=== PATIENT | male | born 1990 | race Caucasian/White ===

== ENCOUNTER 2018-11-05 09:53 | Emergency (ER) | payer BC, OTHER ==
[~2018-11-05] VITALS: Ht 177.8 cm; Wt 68.5 kg
[~2018-11-05 09:53] MED LIST: CEFA500C82 PO; HYDR-757 PO; HYDR1TAB PO
[2018-11-05] MEDS ORDERED: LACTATED RINGERS 1,000 ML IV ONE (10:13)
[2018-11-05] MEDS ORDERED: PANTOPRAZOLE 40 MG (PROTONIX) VIAL IV ONE (10:15)
[2018-11-05] MEDS ORDERED: ONDANSETRON 4 MG/2 ML (SDV) Z0FRAN IVP ONE (10:15)
[2018-11-05 10:20] LABS: BILIRUBIN,URINE NEGATIVE (NEGATIVE); CLARITY,URINE CLEAR; COLOR,URINE YELLOW; GLUCOSE, URINE (UA) NEGATIVE (NEGATIVE); KETONES,URINE NEGATIVE (NEGATIVE); LEUKOCYTE ESTERASE ,URINE NEGATIVE (NEGATIVE); NITRITE,URINE NEGATIVE (NEGATIVE); PH,URINE 5 (5-9); PROTEIN,URINE NEGATIVE (NEGATIVE); UROBILINOGEN,URINE NORMAL (NORMAL)
[2018-11-05 10:22] LABS: BASOPHILS % (AUTO) 0 % (0-10); EOSINOPHILS # (AUTO) 0.6 10^3/uL (0.0-0.3); EOSINOPHILS % (AUTO) 6 % (0-10); HEMATOCRIT 43 % (40-54); HEMOGLOBIN 14.4 G/DL (13.3-17.7); LYMPHOCYTES # (AUTO) 1.1 X 10^3 (1.0-4.0); LYMPHOCYTES % (AUTO) 10 % (12-44); MEAN CORPUSCULAR HEMOGLOBIN 29 PG (25-34); MEAN CORPUSCULAR HGB CONC 34 G/DL (32-36); MEAN CORPUSCULAR VOLUME 87 FL (80-99); MEAN PLATELET VOLUME 10.2 FL (7.4-10.4); MONOCYTES # (AUTO) 0.8 X 10^3 (0.0-1.0); MONOCYTES % (AUTO) 8 % (0-12); NEUTROPHILS # (AUTO) 8.4 X 10^3 (1.8-7.8); NEUTROPHILS % (AUTO) 77 % (42-75); PLATELET COUNT 261 10^3/uL (130-400); RED CELL DISTRIBUTION WIDTH 13.3 % (10.0-14.5)
--- OUTSIDE RECORDS SUMMARY | 2018-11-05 10:26 | XMS REPORT | Continuity of Care Document ---
Author Organization Unknown Address Unknown Allergies There is no data. Medications There is no data. Problems There is no data. Procedures There is no data. Results There is no data. Encounters ACCT No. Visit Date/Time Discharge Status Pt. Type Provider Facility Loc./Unit Complaint [id number] 04/25/2013 12:02:00 04/25/2013 13:54:00 [facility] Emergency
[2018-11-05] MEDS ORDERED: IOHEXOL 350 MG/ML 100 ML (OMNIPAQUE 350) VIAL IV ONE (10:30)
[2018-11-05] MEDS ORDERED: HOLD METFORMIN - RECEIVED CONTRAST 20 ML VIAL IV SCH (10:30)
[2018-11-05] MEDS ORDERED: NS 100 ML (IVPB) BAG IV ONE (10:30)
[2018-11-05 10:34] LABS: BACTERIA,URINE TRACE /HPF; SQUAMOUS EPITHELIAL CELL,UR RARE /HPF
[2018-11-05 10:48] LABS: ALANINE AMINOTRANSFERASE 23 U/L (0-55); ALBUMIN 4.5 GM/DL (3.2-4.5); ALKALINE PHOSPHATASE 90 U/L (40-136); AMYLASE 36 U/L (25-125); BILIRUBIN,TOTAL 0.6 MG/DL (0.1-1.0); BUN/CREATININE RATIO 15; CALCIUM 9.2 MG/DL (8.5-10.1); CARBON DIOXIDE 27 MMOL/L (21-32); CHLORIDE 108 MMOL/L (98-107); CREATININE SERUM 0.87 MG/DL (0.60-1.30); GFR ESTIMATED > 60; GLUCOSE 96 MG/DL (70-105); LIPASE 20 U/L (8-78); MAGNESIUM 2.1 MG/DL (1.8-2.4); POTASSIUM 3.7 MMOL/L (3.6-5.0); SODIUM 141 MMOL/L (135-145); TOTAL PROTEIN 7.4 GM/DL (6.4-8.2)
--- NOTE | 2018-11-05 11:18 | Diagnostic Imaging Report ---
PATIENT HISTORY: Abdominal pain in the left abdomen. Nausea and diarrhea. TECHNIQUE: Frontal view of the chest. Supine and upright frontal views of the abdomen. COMPARISON: CT from the same day. FINDINGS: Lung volumes are normal. No focal consolidation is seen. The cardiomediastinal silhouette is normal in size and contour. There is no pleural effusion or pneumothorax. The bowel loops are nondistended with no obstruction seen. Gas is seen in the colon and small bowel. No large collection of free air is seen. There is contrast excretion from the kidneys and in the bladder. No acute osseous abnormality seen. IMPRESSION: 1. No bowel obstruction or large collection of free air. 2. No acute pulmonary abnormality. Dictated by: Dictated on workstation # [id number]
--- NOTE | 2018-11-05 11:31 | Diagnostic Imaging Report ---
PROCEDURE: CT abdomen and pelvis with contrast. TECHNIQUE: Multiple contiguous axial images were obtained through the abdomen and pelvis after administration of intravenous contrast. Auto Exposure Controls were utilized during the CT exam to meet ALARA standards for radiation dose reduction. INDICATION: Left sided abdominal pain, diarrhea. COMPARISON: No prior studies are available for comparison. FINDINGS: The lung bases are clear. The liver demonstrates generalized low density, consistent with hepatic steatosis. No discrete liver mass is seen. The gallbladder is unremarkable. No biliary ductal dilatation is identified. The pancreas has a normal appearance. No peripancreatic fluid or stranding is seen. The spleen is normal in size. No adrenal mass is detected. The kidneys are unremarkable. The aorta is non-aneurysmal. The visualized bowel loops appear to be of normal caliber. There is a long segment of moderate wall thickening involving small bowel loops in the lower abdomen and pelvis. The colon is unremarkable. There is no free fluid or fluid collection. No free air is identified. The bladder is unremarkable. IMPRESSION: Unremarkable CT of the abdomen and pelvis apart from a segment of wall thickening involving small bowel loops in the lower abdomen and pelvis, consistent with a nonspecific enteritis. Inflammatory bowel disease cannot be entirely excluded. There is no bowel obstruction, abscess formation, or free air. Dictated by: Dictated on workstation # [id number]
--- NOTE | 2018-11-05 11:39 | ED GI ---
General Chief Complaint: Abdominal/GI Problems Stated Complaint: DIARRHEA/ABD PAIN Nursing Triage Note: PATIENT HERE FOR COMPLAINTS OF ABD PAIN THAT STARTED AT 0300. HE DESCRIBES PAIN A SQUEEZING ON THE LEFT SIDE OF HIS ABD, THEN A DULL ACHE WHEN IT RELEASES. ADMITS TO NAUSEA AND DIARRHEA, DENIES VOMITING. PATIENT HERE WITH HIS BOSS HE WAS AT WORK WHEN HE DECIDED TO COME TO ER. Sepsis Screen: No Definite Risk Allergies and Home Medications Allergies Coded Allergies: Penicillins (Verified Allergy, Unknown, 11/05/18) Home Medications Hydrocodone Bit/Acetaminophen 1 Each Tablet, 1 EA PO Q6H PRN for MILD PAIN Prescribed by: CHLOE THOMPSON on 04/25/13 1344 Hyoscyamine Sulfate 0.125 Mg Tab.subl, 1-2 TAB SL Q4H Prescribed by: MIGUEL ROLAND on 11/05/18 1143 Ondansetron 4 Mg Tab.rapdis, 4 MG PO Q4H Prescribed by: MIGUEL ROLAND on 11/05/18 1143 Pantoprazole Sodium 40 Mg Tablet.dr, 40 MG PO DAILY Prescribed by: MIGUEL ROLAND on 11/05/18 1143 Past Cycaiwr-Enloeu-Bjamnn Hx Patient Social History Alcohol Use: Occasionally Uses Recreational Drug Use: No Smoking Status: Never a Smoker 2nd Hand Smoke Exposure: Yes Recent Foreign Travel: No Contact w/Someone Who Travel: No Recent Infectious Disease Expo: No Immunizations Up To Date Date of Influenza Vaccine: Jan 29, 2013 Past Medical History Surgeries: Yes (AMPUTATION LEFT FIFTH TOE (TRAUMATIC)) Respiratory: No Cardiac: No Neurological: Yes Reproductive Disorders: No Gastrointestinal: No Musculoskeletal: No Endocrine: No Cancer: No Psychosocial: No Integumentary: No Blood Disorders: No Physical Exam Vital Signs Vital Signs - First Documented 11/05/18 09:58 Temp 98.0 Pulse 85 Resp 20 B/P (MAP) 140/92 (108) Pulse Ox 97 Capillary Refill : Less Than 3 Seconds Height/Weight/BMI Height: 5'10.00" Weight: 151lbs. 0oz. 68.273982ox; BMI Method:Actual Progress/Results/Core Measures Results/Orders Lab Results Laboratory Tests Test 11/05/18 10:15 Range/Units White Blood Count 11.0 4.3-11.0 10^3/uL Red Blood Count 4.94 4.35-5.85 10^6/uL Hemoglobin 14.4 13.3-17.7 G/DL Hematocrit 43 40-54 % Mean Corpuscular Volume 87 80-99 FL Mean Corpuscular Hemoglobin 29 25-34 PG Mean Corpuscular Hemoglobin Concent 34 32-36 G/DL Red Cell Distribution Width 13.3 10.0-14.5 % Platelet Count 261 130-400 10^3/uL Mean Platelet Volume 10.2 7.4-10.4 FL Neutrophils (%) (Auto) 77 H 42-75 % Lymphocytes (%) (Auto) 10 L 12-44 % Monocytes (%) (Auto) 8 0-12 % Eosinophils (%) (Auto) 6 0-10 % Basophils (%) (Auto) 0 0-10 % Neutrophils # (Auto) 8.4 H 1.8-7.8 X 10^3 Lymphocytes # (Auto) 1.1 1.0-4.0 X 10^3 Monocytes # (Auto) 0.8 0.0-1.0 X 10^3 Eosinophils # (Auto) 0.6 H 0.0-0.3 10^3/uL Basophils # (Auto) 0.0 0.0-0.1 10^3/uL Urine Color YELLOW Urine Clarity CLEAR Urine pH 5 5-9 Urine Specific [place] 1.015 L 1.016-1.022 Urine Protein NEGATIVE NEGATIVE Urine Glucose (UA) NEGATIVE NEGATIVE Urine Ketones NEGATIVE NEGATIVE Urine Nitrite NEGATIVE NEGATIVE Urine Bilirubin NEGATIVE NEGATIVE Urine Urobilinogen NORMAL NORMAL MG/DL Urine Leukocyte Esterase NEGATIVE NEGATIVE Urine RBC (Auto) NEGATIVE NEGATIVE Urine RBC NONE /HPF Urine WBC NONE /HPF Urine Squamous Epithelial Cells RARE /HPF Urine Crystals NONE /LPF Urine Bacteria TRACE /HPF Urine Casts NONE /LPF Urine Mucus SMALL H /LPF Urine Culture Indicated NO Sodium Level 141 135-145 MMOL/L Potassium Level 3.7 3.6-5.0 MMOL/L Chloride Level 108 H 98-107 MMOL/L Carbon Dioxide Level 27 21-32 MMOL/L Anion Gap 6 5-14 MMOL/L Blood Urea Nitrogen 13 7-18 MG/DL Creatinine 0.87 0.60-1.30 MG/DL Estimat Glomerular Filtration Rate > 60 BUN/Creatinine Ratio 15 Glucose Level 96 70-105 MG/DL Calcium Level 9.2 8.5-10.1 MG/DL Corrected Calcium 8.8 8.5-10.1 MG/DL Magnesium Level 2.1 1.8-2.4 MG/DL Total Bilirubin 0.6 0.1-1.0 MG/DL Aspartate Amino Transf (AST/SGOT) 29 5-34 U/L Alanine Aminotransferase (ALT/SGPT) 23 0-55 U/L Alkaline Phosphatase 90 40-136 U/L Total Protein 7.4 6.4-8.2 GM/DL Albumin 4.5 3.2-4.5 GM/DL Amylase Level 36 25-125 U/L Lipase 20 8-78 U/L My Orders Orders - MIGUEL ROLAND DO Ed Iv/Invasive Line Start (11/05/18 10:07) Amylase (11/05/18 10:07) Cbc With Automated Diff (11/05/18 10:07) Comprehensive Metabolic Panel (11/05/18 10:07) Lipase (11/05/18 10:07) Magnesium (11/05/18 10:07) Ua Culture If Indicated (11/05/18 10:07) Ed Iv/Invasive Line Start (11/05/18 10:07) Ct Abdomen/Pelvis W (11/05/18 10:13) Acute Abd Series (11/05/18 10:13) Ondansetron Injection (Zofran Injectio (11/05/18 10:15) Ed Iv/Invasive Line Start (11/05/18 10:13) Lactated Ringers (Lr 1000 Ml Iv Solution (11/05/18 10:13) Pantoprazole Injection (Protonix Injecti (11/05/18 10:15) Iohexol Injection (Omnipaque 350 Mg/Ml 1 (11/05/18 10:30) Received Contrast (Hold Metformin- Contr (11/05/18 10:30) Ns (Ivpb) (Sodium Chloride 0.9% Ivpb Bag (11/05/18 10:30) Hyoscyamine Sl Tablet (Levsin Sl Tablet) (11/05/18 11:45) Ketorolac Injection (Toradol Injection) (11/05/18 11:45) Medications Given in ED Current Medications Medications Dose Ordered Sig/Cherie Route Start Time Stop Time Status Last Admin Dose Admin Iohexol 100 ml ONCE ONCE IV 11/05/18 10:30 11/05/18 10:31 DC 11/05/18 11:02 100 ML Lactated Ringer's 1,000 ml @ 0 mls/hr Q0M ONCE IV 11/05/18 10:13 11/05/18 10:15 DC 11/05/18 10:27 0 MLS/HR Ondansetron HCl 4 mg ONCE ONCE IVP 11/05/18 10:15 11/05/18 10:16 DC 11/05/18 10:27 4 MG Pantoprazole 40 mg ONCE ONCE IV 11/05/18 10:15 11/05/18 10:16 DC 11/05/18 10:27 40 MG Sodium Chloride 100 ml ONCE ONCE IV 11/05/18 10:30 11/05/18 10:31 DC 11/05/18 11:02 100 ML Vital Signs/I&O 11/05/18 09:58 Temp 98.0 Pulse 85 Resp 20 B/P (MAP) 140/92 (108) Pulse Ox 97 Blood Pressure Mean: 108 Departure Impression Primary Impression: Gastroenteritis Disposition: 01 HOME, SELF-CARE Condition: Improved Departure-Patient Inst. Referrals: NO,LOCAL PHYSICIAN (PCP/Family) Primary Care Physician Patient Instructions: [id number] Add. Discharge Instructions: CLEAR LIQUIDS--WATER, BROTH, JELLO, GATORADE BRATS DIET--BANANAS, RICE, APPLESAUCE, TOAST, SALTINES FOLLOW UP WITH YOUR DR IN 2-3 DAYS IF NO BETTER, RETURN TO ER IF WORSE All discharge instructions reviewed with patient and/or family. Voiced understanding. Scripts Pantoprazole Sodium (Protonix) 40 Mg Tablet.dr 40 MG PO DAILY, #15 TAB Prov: MIGUEL ROLAND DO 11/05/18 Hyoscyamine Sulfate (Levsin-Sl) 0.125 Mg Tab.subl 1-2 TAB SL Q4H for Abdominal Pain, #10 TAB Prov: MIGUEL ROLAND DO 11/05/18 Ondansetron (Ondansetron Odt) 4 Mg Tab.rapdis 4 MG PO Q4H for Nausea/Vomiting, #10 TAB Prov: MIGUEL ROLAND DO 11/05/18 Work/School Note: Work Release Form Date Seen in the Emergency Department: Nov 05, 2018 Return to Work: Nov 06, 2018 Restrictions: No Restrictions MIGUEL ROLAND DO Nov 05, 2018 11:39
[2018-11-05] MEDS ORDERED: PANT40TA2 PO (11:43)
[2018-11-05] MEDS ORDERED: HYOS0.1283 SL (11:43)
[2018-11-05] MEDS ORDERED: ONDA4TAB11 PO (11:43)
[2018-11-05] MEDS ORDERED: KETOROLAC 30 MG/ML VIAL IVP ONE (11:45)
[2018-11-05] MEDS ORDERED: HYOSCYAMINE 0.125 MG (LEVSIN) TAB PO ONE (11:45)
[2018-11-05 12:35] VITALS: BP 140/92
== END 2018-11-05 12:35 | disposition home or self-care (01) ==
LOC: EDUNIT# 09:53 → ER 09:55
DX: K52.9 Noninfective gastroenteritis and colitis, unspecified (principal); Z88.0 Allergy status to penicillin; Z89.422 Acquired absence of other left toe(s)
CPT/HCPCS: 36415; 74022; 74177; 80053; 81000; 82150; 83690; 83735; 85025; 96374; 96375